=== PATIENT | female | born 1985 | race Caucasian/White ===

== ENCOUNTER 2023-04-27 11:42 | Emergency (ER) | payer BC ==
[~2023-04-27] VITALS: Ht 165.1 cm; Wt 65.8 kg
[2023-04-27 12:01] VITALS: O2SAT 98
[2023-04-27] MEDS ORDERED: SERT50TA PO (12:05)
[2023-04-27 12:37] LABS: BASOPHILS # (AUTO) 0.1 K/UL (0.0-0.2); EOSINOPHILS # (AUTO) 0.1 K/uL (0.0-0.7); EOSINOPHILS % (AUTO) 2.1 % (0.0-7.0); HEMATOCRIT 36.2 % (31.2-41.9); HEMOGLOBIN 12.3 g/dL (10.9-14.3); LYMPHOCYTES # (AUTO) 1.6 K/uL (0.8-4.8); LYMPHOCYTES % (AUTO) 28.6 % (20.5-51.5); MEAN CORPUSCULAR HEMOGLOBIN 31.8 uug (24.7-32.8); MEAN CORPUSCULAR HGB CONC 34 g/dL (32.3-35.6); MEAN CORPUSCULAR VOLUME 93.5 fL (75.5-95.3); MONOCYTES # (AUTO) 0.5 K/uL (0.1-1.30); MONOCYTES % (AUTO) 8.4 % (0.0-11.0); NEUTROPHILS # (AUTO) 3.4 K/uL (1.8-8.9); NEUTROPHILS % (AUTO) 59.9 % (38.5-71.5); PLATELET COUNT (AUTO) 337 K/uL (179-408); RED BLOOD CELL COUNT(AUTO) 3.87 MIL/uL (3.63-4.92); RED CELL DISTRIBUTION WIDTH 13.7 % (12.3-17.7); WHITE BLOOD COUNT (AUTO) 5.7 K/uL (3.8-11.8)
[2023-04-27 12:44] LABS: CALCIUM 9.4 mg/dL (8.5-10.1); CARBON DIOXIDE 29 mmol/L (21-32); CHLORIDE 103 mmol/L (98-107); CREATININE 0.8 mg/dL (0.6-1.3); DIFFERENTIAL COMMENT 1; GLUCOSE 97 mg/dL (74-106); POTASSIUM 4.6 mmol/L (3.5-5.1); SODIUM SERUM 140 mmol/L (136-145); UREA NITROGEN, BLOOD 14 mg/dL (7-18)
[2023-04-27 12:53] LABS: ALANINE AMINOTRANSFERASE 20 U/L (14-59); ALKALINE PHOSPHATASE 42 U/L (50-136); ASPARTATE AMINOTRANSFERASE 8 U/L (15-37); BILIRUBIN,TOTAL 0.2 mg/dL (0.2-1.0); TOTAL PROTEIN, SERUM 7.9 g/dL (6.4-8.2)
[2023-04-27 12:55] LABS: BILIRUBIN,DIRECT < 0.1 mg/dL (0.0-0.2)
== END 2023-04-27 13:38 | disposition home or self-care (01) ==
LOC: ER 11:42
DX: R00.2 Palpitations (principal); F41.9 Anxiety disorder, unspecified; Z79.899 Other long term (current) drug therapy; Z60.2 Problems related to living alone
CPT/HCPCS: 36415; 84443; 84484; 85025; 93005; A4606; A4663